=== PATIENT | female | born 1955 | race African-American/Black ===

== ENCOUNTER 2018-07-13 09:19 | Emergency (ER) | payer SELFPAY ==
--- NOTE | 2018-07-13 09:49 | EDM.PDOC ---
ED HPI GENERAL MEDICAL PROBLEM - General Chief Complaint: General Stated Complaint: DRY MOUTH, BREAST PAIN AND SOB Time Seen by Provider: 07/13/18 09:34 Source of Information: Reports: Patient, RN Notes Reviewed History Limitations: Reports: No Limitations - History of Present Illness INITIAL COMMENTS - FREE TEXT/NARRATIVE: The patient states that she has had a headache and a dry cough for the past 5 days. She states that she drank a lot of water, which helped her headache, but then she developed left breast discomfort. She describes the discomfort as a pressure. She removed her brassiere, but it did not help, and she has been experiencing left breast discomfort ever since. She has not seen any visible abnormality to the breast, does not recall any trauma to it. She reports having a dry mouth for the past 4 days, bad enough that she has difficulty eating food. She reports feeling both hot and cold. No recent nausea, vomiting, constipation, or diarrhea. No dysuria, but she states that because she has been drinking so much water, she has had urinary frequency. The patient reports prior left breast discomfort about one month ago, but it was brief, and she did not seek medical attention for it. The patient states that she has never had a mammogram. She did not receive an influenza vaccine this season. The patient does not have a PCP. Left Breast Pain Score (Numeric/FACES): 3 - Related Data Allergies Allergy/AdvReac Type Severity Reaction Status Date / Time No Known Allergies Allergy Verified 07/13/18 09:34 Home Meds: Home Meds . [No Known Home Meds] 07/13/18 [History] Past Medical History - Past Surgical History Female Surgical History: Reports: D&C (x 1) Social & Family History - Tobacco Use Smoking Status *Q: Never Smoker - Alcohol Use Alcohol Use History: No - Recreational Drug Use Recreational Drug Use: No - Living Situation & Occupation Living situation: Reports: , Alone ( is in [facility]) Occupation: Employed ([employer]) ED ROS GENERAL - Review of Systems Review Of Systems: ROS reveals no pertinent complaints other than HPI. ED EXAM, GENERAL - Physical Exam Exam: See Below Exam Limited By: No Limitations General Appearance: Alert, WD/WN, No Apparent Distress Eye Exam: Bilateral Eye: EOMI, Normal Inspection Ears: Normal External Exam, Hearing Grossly Normal Nose: Normal Inspection Throat/Mouth: Normal Inspection, Normal Lips, Normal Voice, No Airway Compromise Head: Atraumatic, Normocephalic Neck: Normal Inspection, Full Range of Motion Respiratory/Chest: No Respiratory Distress, Lungs Clear, Normal Breath Sounds, No Accessory Muscle Use, Chest Non-Tender (including the left breast), Other ( No visible abnormalities to the left breast, such as swelling, dimpling, erythema, or nipple discharge. No masses palpated.) Cardiovascular: Normal Peripheral Pulses, Regular Rate, Rhythm, No Gallop, No JVD, No Murmur, No Rub Peripheral Pulses: 4+: Radial (L), Radial (R) GI/Abdominal: Normal Bowel Sounds, Soft, Non-Tender, No Organomegaly, No Distention, No Abnormal Bruit, No Mass (Female) Exam: Deferred Rectal (Female) Exam: Deferred Back Exam: Normal Inspection, Full Range of Motion, NT Extremities: Normal Inspection, Normal Range of Motion, No Pedal Edema, Normal Capillary Refill Neurological: Alert, Oriented, Normal Cognition, No Motor/Sensory Deficits Psychiatric: Normal Affect Skin Exam: Warm, Dry, Intact, Normal Color, No Rash Course - Vital Signs Last Recorded V/S: Last Vital Signs Temp 36.8 C 07/13/18 09:32 Pulse 88 07/13/18 09:32 Resp 18 07/13/18 09:32 BP 125/72 07/13/18 09:32 Pulse Ox 98 07/13/18 09:32 - Orders/Labs/Meds Orders: Active Orders 24 hr Category Date Time Status Accu Check [Blood Glucose Check, Bedside] [RC] ONETIME Care 07/13/18 09:47 Active Labs: Laboratory Tests 07/13/18 07/13/18 07/13/18 Range/Units 09:47 09:58 09:58 WBC 6.05 (3.98-10.04) K/mm3 RBC 5.02 (3.98-5.22) M/mm3 Hgb 13.5 (11.2-15.7) gm/L Hct 41.2 (34.1-44.9) % MCV 82.1 (79.4-94.8) fl MCH 26.9 (25.6-32.2) pg MCHC 32.8 (32.2-35.5) g/dl RDW Std Deviation 45.3 (36.4-46.3) fL Plt Count 255 (182-369) K/mm3 MPV 10.0 (9.4-12.3) fl Neutrophils % (Manual) 53 (40-60) % Band Neutrophils % 0 (0-10) % Lymphocytes % (Manual) 46 H (20-40) % Atypical Lymphs % 0 % Monocytes % (Manual) 1 L (2-10) % Eosinophils % (Manual) 0 L (0.7-5.8) % Basophils % (Manual) 0 L (0.1-1.2) Platelet Estimate Adequate Plt Morphology Comment Normal RBC Morph Comment Normal Sodium 140 (136-145) mEq/L Potassium 3.5 (3.5-5.1) mEq/L Chloride 105 (98-107) mEq/L Carbon Dioxide 24 (21-32) mEq/L Anion Gap 14.5 (5-15) BUN 7 (7-18) mg/dL Creatinine 1.0 (0.55-1.02) mg/dL Est Cr Clr Drug Dosing TNP Estimated GFR (MDRD) 57 (>60) mL/min BUN/Creatinine Ratio 7.0 L (14-18) Glucose 110 H (74-106) mg/dL POC Glucose 112 H (70-105) mg/dL Calcium 9.5 (8.5-10.1) mg/dL Magnesium 2.2 (1.8-2.4) mg/dl Total Bilirubin 1.3 H (0.2-1.0) mg/dL AST 22 (15-37) U/L ALT 30 (14-59) U/L Alkaline Phosphatase 62 (46-116) U/L Total Protein 7.8 (6.4-8.2) g/dl Albumin 3.9 (3.4-5.0) g/dl Globulin 3.9 gm/dL Albumin/Globulin Ratio 1.0 (1-2) Urine Color (Yellow) Urine Appearance (Clear) Urine pH (5.0-8.0) Ur Specific [place] (1.005-1.030) Urine Protein (Negative) Urine Glucose (UA) (Negative) Urine Ketones (Negative) Urine Occult Blood (Negative) Urine Nitrite (Negative) Urine Bilirubin (Negative) Urine Urobilinogen (0.2-1.0) Ur Leukocyte Esterase (Negative) Urine RBC (0-5) /hpf Urine WBC (0-5) /hpf Ur Epithelial Cells (0-5) /hpf Urine Bacteria (FEW) /hpf Urine Mucus (FEW) /hpf 07/13/18 Range/Units 10:00 WBC (3.98-10.04) K/mm3 RBC (3.98-5.22) M/mm3 Hgb (11.2-15.7) gm/L Hct (34.1-44.9) % MCV (79.4-94.8) fl MCH (25.6-32.2) pg MCHC (32.2-35.5) g/dl RDW Std Deviation (36.4-46.3) fL Plt Count (182-369) K/mm3 MPV (9.4-12.3) fl Neutrophils % (Manual) (40-60) % Band Neutrophils % (0-10) % Lymphocytes % (Manual) (20-40) % Atypical Lymphs % % Monocytes % (Manual) (2-10) % Eosinophils % (Manual) (0.7-5.8) % Basophils % (Manual) (0.1-1.2) Platelet Estimate Plt Morphology Comment RBC Morph Comment Sodium (136-145) mEq/L Potassium (3.5-5.1) mEq/L Chloride (98-107) mEq/L Carbon Dioxide (21-32) mEq/L Anion Gap (5-15) BUN (7-18) mg/dL Creatinine (0.55-1.02) mg/dL Est Cr Clr Drug Dosing Estimated GFR (MDRD) (>60) mL/min BUN/Creatinine Ratio (14-18) Glucose (74-106) mg/dL POC Glucose (70-105) mg/dL Calcium (8.5-10.1) mg/dL Magnesium (1.8-2.4) mg/dl Total Bilirubin (0.2-1.0) mg/dL AST (15-37) U/L ALT (14-59) U/L Alkaline Phosphatase (46-116) U/L Total Protein (6.4-8.2) g/dl Albumin (3.4-5.0) g/dl Globulin gm/dL Albumin/Globulin Ratio (1-2) Urine Color Yellow (Yellow) Urine Appearance Clear (Clear) Urine pH 7.0 (5.0-8.0) Ur Specific [place] 1.010 (1.005-1.030) Urine Protein Negative (Negative) Urine Glucose (UA) Negative (Negative) Urine Ketones Negative (Negative) Urine Occult Blood Negative (Negative) Urine Nitrite Negative (Negative) Urine Bilirubin Negative (Negative) Urine Urobilinogen 0.2 (0.2-1.0) Ur Leukocyte Esterase Negative (Negative) Urine RBC Not seen (0-5) /hpf Urine WBC Not seen (0-5) /hpf Ur Epithelial Cells 0-5 (0-5) /hpf Urine Bacteria Rare (FEW) /hpf Urine Mucus Not seen (FEW) /hpf - Re-Assessments/Exams Free Text/Narrative Re-Assessment/Exam: 07/13/18 09:47 With a history of polydipsia and polyuria, I have ordered an Accu-Chek and urinalysis. With her history of a cough and feeling hot and cold, I ordered a CBC, an influenza swab, and a chest x-ray, and with her history of a dry mouth and thirst, I have ordered a CMP and magnesium level. As for the patient's left breast discomfort, I do not see or palpate any abnormality, and the patient stated that her discomfort is not reproducible with palpation. The patient would likely benefit from an outpatient mammogram. 07/13/18 10:47 2-view chest radiograph appears to be grossly normal. The cardiac silhouette is within normal limits. No pulmonary vascular congestion. No pleural effusions. No focal infiltrate. No pneumothorax. Formal read per the Radiologist pending. 07/13/18 11:26 Test results discussed with the patient and her friend. Today's workup is entirely unremarkable, and does not explain the cause of her symptoms. I will refer her to our clinic, where she can have further workup, as well as receive an influenza vaccine, and have arrangements made for her to undergo a mammogram. Departure - Departure Time of Disposition: 11:27 Disposition: Home, Self-Care 01 Condition: Good Clinical Impression: Headache, Thirst, Dry mouth, Breast pain, left, Cough - Discharge Information *PRESCRIPTION DRUG MONITORING PROGRAM REVIEWED*: Not Applicable *COPY OF PRESCRIPTION DRUG MONITORING REPORT IN PATIENT MYA: Not Applicable Instructions: Tension Headache, Adult Referrals: Sophie Newell MD [Physician] - Forms: ED Department Discharge Additional Instructions: You were seen in the emergency room for 5 days of headache, left breast discomfort, a dry mouth, feeling hot and cold, and a cough. Workup in the ER included an Accu-Chek, blood work, a urinalysis, an influenza swab, and a chest x-ray. Your entire workup was unremarkable, and does not explain the cause of your symptoms. Your blood sugar was normal. You do not appear to have an infection. You do not have the flu. Your electrolytes were normal. You do not have a UTI. You do not have pneumonia. We recommend that you follow-up with Dr. Sophie Newell, or one of the other providers in the clinic, at the next available appointment. They can further evaluate your symptoms, provide you an influenza vaccine, and schedule you for a mammogram. If any other problems, please do not hesitate to return to the ER. - My Orders Last 24 Hours: My Active Orders 07/13/18 09:47 Accu Check [Blood Glucose Check, Bedside] [RC] ONETIME - Assessment/Plan Last 24 Hours: My Active Orders 07/13/18 09:47 Accu Check [Blood Glucose Check, Bedside] [RC] ONETIME
--- NOTE | 2018-07-13 11:11 | CR ---
Chest: Two views of the chest were obtained. Comparison: No prior chest x-ray. Heart size is slightly enlarged. Upper mediastinum is normal. Lungs show no acute parenchymal change. Bony structures are within normal limits for the patient's age. Impression: 1. Heart size is slightly prominent. Nothing acute is seen. Diagnostic code #2
== END 2018-07-13 11:39 | disposition home or self-care (01) ==
LOC: JD.ED 09:19
DX: N64.4 Mastodynia (principal); R51 Headache; R63.1 Polydipsia; R68.2 Dry mouth, unspecified; R05 Cough
CPT/HCPCS: 36415; 71046; 71046-26; 80053; 81001; 82962; 83735; 85007; 85027; 87804; 99282; 99283-25